=== PATIENT | male | born 1945 | race African-American/Black ===

== ENCOUNTER 2020-07-18 11:32 | Inpatient (IN) | payer MEDICARE, MEDICAID ==
[~2020-07-18] VITALS: Ht 165.1 cm; Wt 55.3 kg
[2020-07-18 12:42] LABS: BASOPHILS % 0.4 % (0.0-2.0); EOSINOPHILS % 1.4 % (0.0-5.0); HEMATOCRIT. 43.5 % (42.0-52.0); HEMOGLOBIN. 13.7 g/dL (14.0-18.0); LYMPHOCYTES % 8.1 % (20.0-50.0); MEAN CORPUSCULAR HEMOGLOBIN 25.5 pg (28.0-32.0); MEAN PLATELET VOLUME 9.1 fl (7.4-10.4); MONOCYTES % 10.4 % (2.0-8.0); NEUTROPHILS % 79.7 % (40.0-76.0); PLATELET 363 x1000/uL (130-400); RED BLOOD CELL COUNT 5.37 mill/uL (4.7-6.1); RED CELL DISTRIBUTION WIDTH 17.2 % (11.6-14.6)
[2020-07-18 12:47] LABS: CHLORIDE 114 mEq/L (98-107)
[2020-07-18 12:51] LABS: ETHANOL BLOOD < 10 mg/dL
[2020-07-18 12:55] LABS: LDL CHOLESTEROL 95 mg/dL (5-100)
[2020-07-18 12:57] LABS: INR 1.2; PROTHROMBIN TIME 12.3 sec (9.6-11.0)
[2020-07-18] MEDS ORDERED: ASPIRIN 325MG EC TABLET PO ONE (13:00)
[2020-07-18] MEDS ORDERED: ONDANSETRON HCL 4MG/2ML INJ IV PRN (14:15)
[2020-07-18] MEDS ORDERED: ACETAMINOPHEN 325MG TABLET PO PRN (14:15)
[2020-07-18] MEDS ORDERED: DIPHENHYDRAMINE 50MG/ML VIAL IV PRN (14:15)
[2020-07-18] MEDS ORDERED: SODIUM CHLORIDE 0.9% 1,000 ML IV SCH (14:15)
[2020-07-18] MEDS ORDERED: CLONIDINE 0.1MG TABLET PO PRN (14:15)
[2020-07-18] MEDS ORDERED: IPRATROPIUM/ALBUTEROL 0.5-3(2.5)MG/3ML NEB HHN PRN (14:15)
[2020-07-18] MEDS ORDERED: IOHEXOL-350 100 ML BOTTLE ONE (15:04)
[2020-07-18] MEDS ORDERED: DIGOXIN 500MCG/2ML AMP IV NR ×2 (17:21→17:30)
[2020-07-18] MEDS ORDERED: ENOXAPARIN 40MG/0.4ML SYR SUBCUT NR (17:30)
[2020-07-18 20:16] LABS: CLARITY URINE CLEAR (CLEAR); COLOR URINE DARK YELLOW (YELLOW); KETONES URINE NEGATIVE (NEGATIVE); LEUKOCYTE ESTERASE URINE TRACE (NEGATIVE); NITRITE URINE NEGATIVE (NEGATIVE); OCCULT BLOOD URINE NEGATIVE (NEGATIVE); PROTEIN URINE TRACE (NEGATIVE); SPECIFIC GRAVITY URINE 1.064 (1.005-1.030)
[2020-07-18 20:31] LABS: CANNABINOID URINE SCREEN NEGATIVE (NEGATIVE); METHADONE URINE SCREEN NEGATIVE (NEGATIVE); OPIATES URINE SCREEN NEGATIVE (NEGATIVE); PHENCYCLIDINE URINE SCREEN NEGATIVE (NEGATIVE)
[2020-07-18 20:32] LABS: *AMPHETAMINES SCREEN URINE NEGATIVE (NEGATIVE); *BARBITURATES SCREEN URINE NEGATIVE (NEGATIVE)
[2020-07-18 20:35] LABS: *BENZODIAZEPINES SCREEN URINE NEGATIVE (NEGATIVE); *COCAINE SCREEN URINE NEGATIVE (NEGATIVE)
[2020-07-18] MEDS: DILTIAZEM HCL 60MG TABLET PO SCH (22:00)
[2020-07-19 06:42] LABS: BASOPHILS % 0.8 % (0.0-2.0); EOSINOPHILS % 2.6 % (0.0-5.0); HEMATOCRIT. 35.5 % (42.0-52.0); HEMOGLOBIN. 11.6 g/dL (14.0-18.0); LYMPHOCYTES % 10.9 % (20.0-50.0); MEAN CORPUSCULAR HEMOGLOBIN 25.8 pg (28.0-32.0); MEAN CORPUSCULAR VOLUME 79.3 fL (80.0-94.0); MONOCYTES % 14.6 % (2.0-8.0); NEUTROPHILS % 71.1 % (40.0-76.0); PLATELET 324 x1000/uL (130-400); RED BLOOD CELL COUNT 4.48 mill/uL (4.7-6.1); RED CELL DISTRIBUTION WIDTH 16.3 % (11.6-14.6)
[2020-07-19 07:00] LABS: T4 FREE 1.31 ng/dL (0.76-1.46)
[2020-07-19] MEDS: DILTIAZEM HCL 60MG TABLET PO SCH ×3 (08:02→21:37)
[2020-07-19] MEDS: SODIUM CHLORIDE 0.45% 1,000 ML IV SCH (08:15)
[2020-07-19] MEDS: ASPIRIN 81MG EC TABLET PO SCH (09:00)
[2020-07-19 09:33] LABS: CHLORIDE 114 mEq/L (98-107)
[2020-07-19 09:38] LABS: PHOSPHORUS 2.8 mg/dL (2.5-4.9)
[2020-07-19 09:52] LABS: BASOPHILS % 0.7 % (0.0-2.0); EOSINOPHILS % 2.7 % (0.0-5.0); HEMATOCRIT. 38.1 % (42.0-52.0); HEMOGLOBIN. 12.2 g/dL (14.0-18.0); LYMPHOCYTES % 11.6 % (20.0-50.0); MEAN CORPUSCULAR HEMOGLOBIN 25.5 pg (28.0-32.0); MEAN CORPUSCULAR VOLUME 79.9 fL (80.0-94.0); MEAN PLATELET VOLUME 8.8 fl (7.4-10.4); MONOCYTES % 14.1 % (2.0-8.0); NEUTROPHILS % 70.9 % (40.0-76.0); PLATELET 341 x1000/uL (130-400); RED BLOOD CELL COUNT 4.76 mill/uL (4.7-6.1); RED CELL DISTRIBUTION WIDTH 16.7 % (11.6-14.6)
[2020-07-19 11:50] VITALS: BP 134/89
[2020-07-19] MEDS ORDERED: BICA50TA7 MT (12:51)
[2020-07-19] MEDS ORDERED: FERR-71 MT (12:52)
[2020-07-19] MEDS ORDERED: CYANOCOBALAMIN 1000MCG/ML VIAL IM NR (14:00)
[2020-07-19] MEDS ORDERED: DEXTROSE 50% WATER 50ML SYRINGE IV PRN (15:00)
[2020-07-19] MEDS: BLOOD SUGAR DIAGNOSTIC STRIP TEST SCH ×2 (16:34→21:36)
[2020-07-19] MEDS: INSULIN LISPRO 100 UNITS/ML SUBCUT SCH ×2 (16:35→21:00)
[2020-07-19 20:00] VITALS: BP 106/71
[2020-07-20] VITALS: BP 145/88
[2020-07-20 04:00] VITALS: BP_SYST 65
[2020-07-20] MEDS: SODIUM CHLORIDE 0.45% 1,000 ML IV SCH ×2 (04:59→23:57)
[2020-07-20] MEDS: DILTIAZEM HCL 60MG TABLET PO SCH ×3 (06:18→21:50)
[2020-07-20] MEDS: CYANOCOBALAMIN 1000MCG TABLET PO SCH ×3 (06:18→10:11)
[2020-07-20] MEDS: BLOOD SUGAR DIAGNOSTIC STRIP TEST SCH ×5 (06:18→21:50)
[2020-07-20] MEDS: INSULIN LISPRO 100 UNITS/ML SUBCUT SCH ×4 (06:33→21:00)
[2020-07-20 06:45] LABS: BASOPHILS % 0.9 % (0.0-2.0); EOSINOPHILS % 2.6 % (0.0-5.0); HEMATOCRIT. 33.9 % (42.0-52.0); LYMPHOCYTES % 12.4 % (20.0-50.0); MEAN CORPUSCULAR HEMOGLOBIN 25.8 pg (28.0-32.0); MEAN CORPUSCULAR VOLUME 79.4 fL (80.0-94.0); MEAN PLATELET VOLUME 9.3 fl (7.4-10.4); MONOCYTES % 14.8 % (2.0-8.0); NEUTROPHILS % 69.3 % (40.0-76.0); PLATELET 327 x1000/uL (130-400); RED BLOOD CELL COUNT 4.27 mill/uL (4.7-6.1); RED CELL DISTRIBUTION WIDTH 16.5 % (11.6-14.6)
[2020-07-20 06:52] LABS: CHLORIDE 111 mEq/L (98-107)
[2020-07-20 07:03] LABS: PHOSPHORUS 2.9 mg/dL (2.5-4.9)
[2020-07-20 08:00] VITALS: BP 135/80
[2020-07-20] MEDS: ASPIRIN 81MG EC TABLET PO SCH (09:00)
[2020-07-20 12:00] VITALS: BP 148/95
[2020-07-20] MEDS ORDERED: LIDOCAINE HCL 1% 20ML VIAL (Pyxis) INJ ONE (12:27)
[2020-07-20] MEDS ORDERED: IOHEXOL-300 100 ML BOTTLE ONE (12:28)
[2020-07-20] MEDS ORDERED: IODIXANOL 320MG/ML 100 ML BOTTLE IV ONE (12:28)
[2020-07-20] MEDS ORDERED: ASPIRIN/SOD BICARB/CITRIC ACID 324MG TAB EFF ONE (14:49)
[2020-07-20] MEDS ORDERED: MIDAZOLAM HCL 5 MG/5 ML VIAL ONE (14:50)
[2020-07-20] MEDS ORDERED: FENTANYL CITRATE/PF 50MCG/ML 5ML VIAL ONE (14:50)
[2020-07-20] MEDS ORDERED: NITROGLYCERIN 50MCG/ML 10ML VIAL (CATH LAB) IV ONE (15:00)
[2020-07-20] MEDS ORDERED: NICARDIPINE 100MCG/ML 10ML VIAL (CATH LAB) IV ONE (15:00)
[2020-07-20] MEDS ORDERED: HEPARIN SODIUM 1,000 UNIT/1ML VIAL IV ONE (15:00)
[2020-07-20] MEDS ORDERED: ATROPINE SULFATE 1MG/10ML SYR IV PRN (15:30)
[2020-07-20] MEDS ORDERED: ACETAMINOPHEN 325MG TABLET PO PRN (15:30)
[2020-07-20] MEDS ORDERED: ONDANSETRON HCL 4MG/2ML INJ IV PRN (15:30)
[2020-07-20] MEDS ORDERED: MORPHINE SULFATE 2 MG/ML CPJ (NOT FOR IM USE) IV PRN (15:30)
[2020-07-20] MEDS ORDERED: SODIUM CHLORIDE 0.45% 375 ML IV ONE (16:00)
[2020-07-20 16:06] LABS: TOTAL IRON BINDING CAPACITY 279 ug/dL (250-450)
[2020-07-20 16:55] LABS: VITAMIN B12 SERUM > 2000.0 pg/mL (211-911)
[2020-07-20] MEDS ORDERED: WARFARIN SODIUM 5MG TABLET PO NR (18:00)
[2020-07-20 20:00] VITALS: BP 139/97
[2020-07-20] MEDS ORDERED: ENOXAPARIN 40MG/0.4ML SYR SUBCUT SCH (21:00)
[2020-07-21] VITALS: BP 125/93
[2020-07-21 04:00] VITALS: BP 135/96
[2020-07-21] MEDS: DILTIAZEM HCL 60MG TABLET PO SCH ×3 (06:25→22:00)
[2020-07-21] MEDS: CYANOCOBALAMIN 1000MCG TABLET PO SCH (06:25)
[2020-07-21] MEDS: BLOOD SUGAR DIAGNOSTIC STRIP TEST SCH ×4 (06:40→21:00)
[2020-07-21] MEDS: INSULIN LISPRO 100 UNITS/ML SUBCUT SCH ×4 (06:40→21:00)
[2020-07-21 08:00] VITALS: BP 132/92
[2020-07-21] MEDS: ASPIRIN 81MG EC TABLET PO SCH (10:05)
[2020-07-21 10:28] LABS: BASOPHILS % 0.9 % (0.0-2.0); EOSINOPHILS % 1.9 % (0.0-5.0); HEMATOCRIT. 40.5 % (42.0-52.0); HEMOGLOBIN. 13.3 g/dL (14.0-18.0); LYMPHOCYTES % 10.4 % (20.0-50.0); MEAN CORPUSCULAR HEMOGLOBIN 25.9 pg (28.0-32.0); MEAN CORPUSCULAR VOLUME 78.8 fL (80.0-94.0); MEAN PLATELET VOLUME 8.8 fl (7.4-10.4); MONOCYTES % 9.4 % (2.0-8.0); NEUTROPHILS % 77.4 % (40.0-76.0); PLATELET 408 x1000/uL (130-400); RED BLOOD CELL COUNT 5.14 mill/uL (4.7-6.1); RED CELL DISTRIBUTION WIDTH 16.3 % (11.6-14.6)
[2020-07-21 10:34] LABS: CHLORIDE 105 mEq/L (98-107)
[2020-07-21 10:37] LABS: INR 1.1; PROTHROMBIN TIME 11.6 sec (9.6-11.0)
[2020-07-21 12:00] VITALS: BP 127/83
[2020-07-21] MEDS ORDERED: ASPI-1406 PO (12:43)
[2020-07-21] MEDS ORDERED: XAR15 PO (12:43)
[2020-07-21] MEDS ORDERED: DILT60TA35 PO (12:43)
[2020-07-21 16:00] VITALS: BP 122/87
[2020-07-21] MEDS ORDERED: RIVAROXABAN 15 MG TABLET PO SCH (17:00)
[2020-07-21 20:00] VITALS: BP 111/77
[2020-07-22] VITALS: BP 118/79
[2020-07-22] MEDS: DILTIAZEM HCL 60MG TABLET PO SCH ×2 (06:14→13:33)
[2020-07-22] MEDS: CYANOCOBALAMIN 1000MCG TABLET PO SCH (06:15)
[2020-07-22] MEDS: BLOOD SUGAR DIAGNOSTIC STRIP TEST SCH ×2 (06:45→12:11)
[2020-07-22 07:05] LABS: BASOPHILS % 0.9 % (0.0-2.0); HEMATOCRIT. 36.7 % (42.0-52.0); HEMOGLOBIN. 11.8 g/dL (14.0-18.0); LYMPHOCYTES % 9.1 % (20.0-50.0); MEAN CORPUSCULAR HEMOGLOBIN 25.4 pg (28.0-32.0); MEAN CORPUSCULAR VOLUME 78.7 fL (80.0-94.0); MEAN PLATELET VOLUME 8.8 fl (7.4-10.4); MONOCYTES % 12.5 % (2.0-8.0); NEUTROPHILS % 75.5 % (40.0-76.0); PLATELET 433 x1000/uL (130-400); RED BLOOD CELL COUNT 4.66 mill/uL (4.7-6.1); RED CELL DISTRIBUTION WIDTH 16.3 % (11.6-14.6)
[2020-07-22] MEDS: INSULIN LISPRO 100 UNITS/ML SUBCUT SCH ×2 (07:15→12:11)
[2020-07-22 08:00] VITALS: BP 101/67
[2020-07-22 08:01] LABS: CHLORIDE 104 mEq/L (98-107)
[2020-07-22 08:12] LABS: PHOSPHORUS 2.9 mg/dL (2.5-4.9)
[2020-07-22] MEDS: ASPIRIN 81MG EC TABLET PO SCH (09:00)
[2020-07-22 12:00] VITALS: BP 106/68
[2020-07-22 15:05] VITALS: BP 104/72
== END 2020-07-22 16:48 | disposition home or self-care (01) | DRG 64 ==
LOC: ER 12:32 → MICUSO 13:55 → EDBEDREQ 13:57 → 5WST 07-19 10:38
PROVIDERS: ADMIT Internal Medicine; ATTEND Internal Medicine
PROC: 4A023N7 Measurement of Cardiac Sampling and Pressure, Left Heart, Percutaneous Approach (ICD-10-PCS; principal; 2020-07-20)
PROC: B2111ZZ Fluoroscopy of Multiple Coronary Arteries using Low Osmolar Contrast (ICD-10-PCS; 2020-07-20)
DX: I63.9 Cerebral infarction, unspecified (principal); I21.4 Non-ST elevation (NSTEMI) myocardial infarction; I50.21 Acute systolic (congestive) heart failure; E87.0 Hyperosmolality and hypernatremia; N17.9 Acute kidney failure, unspecified; I42.9 Cardiomyopathy, unspecified; I47.1 Supraventricular tachycardia; I48.92 Unspecified atrial flutter; I69.352 Hemiplegia and hemiparesis following cerebral infarction affecting left dominant side; G45.9 Transient cerebral ischemic attack, unspecified; R47.01 Aphasia; D64.9 Anemia, unspecified; I25.10 Atherosclerotic heart disease of native coronary artery without angina pectoris; I48.91 Unspecified atrial fibrillation; Z20.822 Contact with and (suspected) exposure to COVID-19; I25.2 Old myocardial infarction; Z79.01 Long term (current) use of anticoagulants; Z95.810 Presence of automatic (implantable) cardiac defibrillator; Z82.49 Family history of ischemic heart disease and other diseases of the circulatory system; Z95.1 Presence of aortocoronary bypass graft; Z95.2 Presence of prosthetic heart valve; Z98.61 Coronary angioplasty status; Z79.899 Other long term (current) drug therapy; Z79.82 Long term (current) use of aspirin; I11.0 Hypertensive heart disease with heart failure
CPT/HCPCS: 36415; 70496; 70498; 71045; 76770; 80048; 80053; 80061; 80305; 80320; 81003; 82607; 82746; 82962; 83036; 83540; 83550; 83721; 83735; 84100; 84439; 84443; 84481; 84484; 85025; 85044; 87426; 92610; 93005; 93306; 93458; 93880; 96374; 97116; 97162; 97166; 97530; 97535; 99285; C1769; C1893; J1160; J1200; J1644; J1650; J2250; J3010; J3420; J3490; Q9967; G0480